=== PATIENT | male | born 1980 | race Caucasian/White ===

== ENCOUNTER 2019-10-15 15:18 | Emergency (ER) | payer OTHER ==
[2019-10-15] MEDS ORDERED: Acetaminophen/HYDROcodone 325-5 MG Tab ONE (16:00)
--- NOTE | 2019-10-15 19:56 | ER ---
HISTORY OF PRESENT ILLNESS: 39-year-old male here with complaints of injuring his right hand. He had been fishing today. He has a large dog that was in the boat. The dog was on a leash. The patient had the lease wrapped around his right hand. The dog jumped out of the boat and missed the dock and this jerked the patient's hand forcefully. He is not sure if he hit the boat or the dock with his hand, but he injured his right hand. He is pointing to the dorsal aspect of the hand proximal to the 2nd and 3rd fingers when describing the area of discomfort. He also has a small wound on the index finger. The patient denies any other injuries. He denies any numbness or tingling involving the finger. OBJECTIVE: GENERAL APPEARANCE: The patient is awake and alert. No obvious distress. VITAL SIGNS: Reviewed as listed. EXTREMITIES: Examining the right hand reveals moderate swelling over the dorsal aspect of the hand. This area is quite tender with light palpation seeming to be located proximal to the index finger mainly. The index finger itself has a small abrasion injury over the dorsal aspect of the middle phalanx. There is no bleeding at this time. LABORATORY DATA AND X-RAY: X-ray was obtained. There was a fracture of the 2nd metacarpal with really no displacement or angulation. DIAGNOSIS: Fracture of right hand, 2nd metacarpal. TREATMENT PLAN: A gutter splint was applied today and the patient was also given a sling. I will put him on [place] tablets to use as needed for pain. RICE therapy was discussed and the patient is to follow up. In a few days, he plans on going back home. He lives in the [facility] area over the weekend. If his symptoms are getting worse, he should follow up sooner. 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 CRS/MODL /[id number]
--- NOTE | 2019-10-16 09:24 | CR ---
DATE OF SERVICE: 10/15/19 CLINICAL DATA: Injury. RIGHT HAND: There is a minimally displaced, comminuted interarticular fracture through the mid and distal 2nd metacarpal. No other acute abnormalities. [id number] MTDD
== END 2019-10-15 16:23 | disposition home or self-care (01) ==
LOC: LB.ED 15:18
DX: S62.320A Displaced fracture of shaft of second metacarpal bone, right hand, initial encounter for closed fracture (principal); S62.330A Displaced fracture of neck of second metacarpal bone, right hand, initial encounter for closed fracture; X50.9XXA Other and unspecified overexertion or strenuous movements or postures, initial encounter
CPT/HCPCS: 29125; 73130; 99283; A9270